=== PATIENT | female | born 1950 | race Caucasian/White ===

== ENCOUNTER 2017-08-16 18:12 | Emergency (ER) | payer BC, MEDICARE ==
--- NOTE | 2017-08-16 19:01 | EDM.PDOC ---
ED HPI GENERAL MEDICAL PROBLEM - General Chief Complaint: Genitourinary Problem Stated Complaint: NAUSEA,FEVER,HEADACHE Time Seen by Provider: 08/16/17 18:45 Source of Information: Reports: Patient, Old Records, RN History Limitations: Reports: No Limitations - History of Present Illness INITIAL COMMENTS - FREE TEXT/NARRATIVE: 67 yo female presents not feeling well. States she had a fever last night that went away. Thought the fever was coming back tonight so came in. Was seen in the walk-in clinic on Thursday and was given nitrofurantoin for microscopic hematuria associated with mild UTI sx's. That night she had vomiting, but no diarrhea. Since then she's had some mild nausea, but no additional vomiting. Is not dizzy with standing. Her urine cx from Thursday showed no growth, but she is still taking the nitrofurantoin. Last took Tylenol 325 mg at 1 pm today. Had a hysterectomy in mid Jun for prolapse. Onset Date: 07/30/17 Duration: Day(s):, Improving Severity: Mild Improves with: Reports: Other (? time) Worsens with: Reports: Other (unknown) Context: Reports: Other (? viral illness, no known exposures) Associated Symptoms: Reports: Fever/Chills (not documented today, felt warm before coming in. ), Nausea/Vomiting (mild nausea, no vomiting). 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: Other (see below) (nitrofurantoin) - Related Data Allergies Allergy/AdvReac Type Severity Reaction Status Date / Time nickel Allergy Rash Verified 08/16/17 18:28 Sulfa (Sulfonamide Allergy Hives Verified 08/16/17 18:28 Antibiotics) Home Meds: Home Meds Clobetasol [Clobetasol Propionate 0.05%] 1 applic TOP BID 08/16/17 [History] Latanoprost [Xalatan 0.005% Ophth Soln] 1 drop EYEBOTH BEDTIME 08/16/17 [History ] Nitrofurantoin Monohyd/M-Cryst [Macrobid 100 mg Capsule] 1 tab PO BID 08/16/17 [ History] Timolol [Betimol 0.5% Ophth Soln] 1 drop EYEBOTH DAILY 08/16/17 [History] Past Medical History - Past Health History Medical/Surgical History: Denies Medical/Surgical History HEENT History: Reports: Glaucoma 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: Musculoskeletal History: Reports: Fracture Other Musculoskeletal History: left wrist fracture 2014 - Infectious Disease History Infectious Disease History: Reports: Chicken Pox, Measles - Past Surgical History GI Surgical History: Reports: Colonoscopy, Other (See Below) Other GI Surgeries/Procedures: colon resection 2004 Female Surgical History: Reports: Hysterectomy Social & Family History - Tobacco Use Smoking Status *Q: Never Smoker Second Hand Smoke Exposure: Yes - Caffeine Use Caffeine Use: Reports: Coffee - Alcohol Use Days Per Week of Alcohol Use: 1 Number of Drinks Per Day: 2 Total Drinks Per Week: 2 - Recreational Drug Use Recreational Drug Use: No ED ROS GENERAL - Review of Systems Review Of Systems: See Below Constitutional: Reports: Fever (Last measured last night.) HEENT: Reports: No Symptoms Respiratory: Reports: No Symptoms Cardiovascular: Reports: No Symptoms Endocrine: Reports: No Symptoms GI/Abdominal: Reports: Nausea (mild) : Reports: Other (These sx's have resolved since Thursday.) Musculoskeletal: Reports: No Symptoms Skin: Reports: No Symptoms Neurological: Reports: No Symptoms ED EXAM, RENAL/ - Physical Exam Exam: See Below Exam Limited By: No Limitations General Appearance: Alert, WD/WN, No Apparent Distress Eye Exam: Bilateral Eye: Normal Inspection Ears: Normal External Exam, Normal Canal, Hearing Grossly Normal, Normal TMs Nose: Normal Inspection, Normal Mucosa, No Blood Throat/Mouth: Normal Inspection, Normal Lips, Normal Oropharynx, Normal Voice, No Airway Compromise Head: Atraumatic, Normocephalic Neck: Normal Inspection, Supple, Non-Tender Respiratory/Chest: No Respiratory Distress, Lungs Clear, Normal Breath Sounds, No Accessory Muscle Use Cardiovascular: Regular Rate, Rhythm, No Edema GI/Abdominal: Normal Bowel Sounds, Soft, Non-Tender, No Distention Back Exam: Normal Inspection. No: CVA Tenderness (R), CVA Tenderness (L) Extremities: Normal Inspection, Normal Range of Motion, Non-Tender, No Pedal Edema Neurological: Alert, Oriented, CN II-XII Intact, Normal Cognition, No Motor/ Sensory Deficits Psychiatric: Normal Affect, Normal Mood Skin Exam: Warm, Dry, Intact, Normal Color, No Rash Lymphatic: No Adenopathy Course - Vital Signs Last Recorded V/S: Last Vital Signs Temp 37.1 C 08/16/17 18:43 Pulse 95 08/16/17 18:43 Resp 16 08/16/17 18:43 BP 142/66 H 08/16/17 18:43 Pulse Ox 94 L 08/16/17 18:43 Orthostatic Blood Pressure [ 144/71 Standing] Orthostatic Blood Pressure [ 137/73 Sitting] Orthostatic Blood Pressure [ 137/70 Supine] - Orders/Labs/Meds Orders: Active Orders 24 hr Category Date Time Status Orthostatic Vital Signs [RC] ASDIRECTED Care 08/16/17 19:39 Active Chest 2V [CR] Stat Exams 08/16/17 19:15 Stop Req Chest 2V [CR] Stat Exams 08/16/17 19:37 Taken CULTURE BLOOD [BC] Stat Lab 08/16/17 19:40 Received CULTURE BLOOD [BC] Stat Lab 08/16/17 19:50 Received Levofloxacin [Levaquin] Med 08/16/17 20:50 Once 500 mg PO ONETIME ONE Labs: Laboratory Tests 08/16/17 08/16/17 08/16/17 Range/Units 18:52 19:05 19:15 WBC 15.9 H (4.5-11.0) K/uL RBC 4.36 (3.30-5.50) M/uL Hgb 12.8 (12.0-15.0) g/dL Hct 40.0 (36.0-48.0) % MCV 92 (80-98) fL MCH 29 (27-31) pg MCHC 32 (32-36) % Plt Count 281 (150-400) K/uL C-Reactive Protein 13.36 H (0.0-0.3) mg/dL Urine Color Yellow Urine Appearance Clear Urine pH 5.0 (4.5-8.0) Ur Specific [place] 1.010 (1.008-1.030) Urine Protein Trace (NEGATIVE) mg/dL Urine Glucose (UA) Normal (NEGATIVE) mg/dL Urine Ketones Negative (NEGATIVE) mg/dL Urine Occult Blood Negative (NEGATIVE) Urine Nitrite Negative (NEGATIVE) Urine Bilirubin Negative (NEGATIVE) Urine Urobilinogen Normal (NORMAL) mg/dL Ur Leukocyte Esterase Moderate (NEGATIVE) Urine RBC 0-5 (0-5) Urine WBC 5-10 H (0-5) Ur Epithelial Cells Rare Amorphous Sediment Not seen Urine Bacteria Not seen Urine Mucus Not seen - Radiology Interpretation Free Text/Narrative:: CXR-possible developing pneumonia L base with small pleural effusion. Departure - Departure Time of Disposition: 21:00 Disposition: Home, Self-Care 01 Condition: Fair Clinical Impression: Pneumonia Qualifiers: Pneumonia type: due to unspecified organism Laterality: left Lung location: lower lobe of lung Qualified Code(s): J18.1 - Lobar pneumonia, unspecified organism - Discharge Information Referrals: Abeba Quigley PA [Primary Care Provider] - Forms: ED Department Discharge - My Orders Last 24 Hours: My Active Orders 08/16/17 19:15 Chest 2V [CR] Stat 08/16/17 19:37 Chest 2V [CR] Stat 08/16/17 19:39 Orthostatic Vital Signs [RC] ASDIRECTED 08/16/17 19:40 CULTURE BLOOD [BC] Stat 08/16/17 19:50 CULTURE BLOOD [BC] Stat 08/16/17 20:50 Levofloxacin [Levaquin] 500 mg PO ONETIME ONE - Assessment/Plan Last 24 Hours: My Active Orders 08/16/17 19:15 Chest 2V [CR] Stat 08/16/17 19:37 Chest 2V [CR] Stat 08/16/17 19:39 Orthostatic Vital Signs [RC] ASDIRECTED 08/16/17 19:40 CULTURE BLOOD [BC] Stat 08/16/17 19:50 CULTURE BLOOD [BC] Stat 08/16/17 20:50 Levofloxacin [Levaquin] 500 mg PO ONETIME ONE
[2017-08-16] MEDS ORDERED: Levofloxacin 250 MG Tab PO ONE (20:50)
[2017-08-16] MEDS ORDERED: Levofloxacin 500 MG Tab ONE (20:56)
== END 2017-08-16 21:06 | disposition home or self-care (01) ==
LOC: JP.ED 18:12
DX: J18.9 Pneumonia, unspecified organism (principal); Z88.2 Allergy status to sulfonamides; Z79.899 Other long term (current) drug therapy
CPT/HCPCS: 36415; 71020; 81001; 85027; 86140; 87040; 99284; A9270; 99283